=== PATIENT | female | born 1995 | race Caucasian/White ===

== ENCOUNTER 2016-10-19 01:38 | Inpatient (IN) | payer OTHER ==
[2016-10-19] MEDS ORDERED: ONDANSETRON HCL/PF 2 MG/ML VIAL IV PRN ×2 (03:18→05:40)
[2016-10-19] MEDS ORDERED: NALOXONE HCL 1 MG/1 ML SYRG IV PRN ×2 (03:18→05:40)
[2016-10-19 03:39] LABS: Hematocrit 38.2 % (37.0-47.0); Hemoglobin 12.8 gm/dL (12.5-16.0); Mean Cell Volume 90.7 fl (78-100); Mean Corpuscular Hemoglobin 30.4 pg (27-31); Mean Corpuscular Hgb Conc 33.5 g/dl (32-36); Mean Platelet Volume 9.2 fl (6.0-9.5); Neutrophil # 10.8 K/mm3 (1.3-6.0); Neutrophil % 74.2 % (42-75.0); Platelet Count 261 K/mm3 (150-450); Red Blood Count 4.21 M/mm3 (4.2-5.4); Red Cell Distribution Width 13.6 % (11.5-14.0); White Blood Count 14.5 K/mm3 (4.0-10.5)
[2016-10-19] MEDS ORDERED: LIDOCAINE HCL 50 ML VIAL PERI PRN (04:02)
[2016-10-19] MEDS: RINGER'S SOLUTION,LACTATED 1,000 ML IV PRN ×2 (04:40→05:30)
[2016-10-19] MEDS ORDERED: fentaNYL CITRATE/PF 50 MCG/ML AMPUL IT ONE (04:47)
[2016-10-19] MEDS ORDERED: fentaNYL CITRATE/PF 50 MCG/ML AMPUL IT SCH (05:00)
--- NOTE | 2016-10-19 05:14 | OR ---
Anesthesia Pre Procedure Eval Date of Service: 10/19/16 Pre Procedure Evaluation: Anesthesia Pre Procedure Evaluation Heart Rate: 98 Blood Pressure: 131/82 Temperature: 36.6 Respiratory Rate: 18 SaO2: 98 DATE: 10/19/2016 TIME: 5:10 AM INDICATIONS: Active labor, and pain PAST MEDICAL HISTORY: Patient in active labor requesting labor analgesia EXAM: Heart regular; lungs clear ASSESSMENT OF MEDICAL STATUS: Appropriate candidate for labor analgesia PLANNED PROCEDURE: Combination spinal epidural for labor analgesia Home Medications: HOME MEDICATIONS Vit#96/Ferrous Fum/FA [ S] 1 tab PO DAILY 10/18/16 [Last Taken 10/18/16]
--- NOTE | 2016-10-19 05:36 | OR ---
Anesthesia Procedure Note - Anesthesia Procedure Note Date of Service: 10/19/16 Narrative: 10/19/16 05:33 ANESTHESIA PROCEDURE NOTE Date of Procedure: 10/19/2016 Time of procedure: 5:10 AM. Performed by: SUSANA Norman CRNA, MSN Camper Assembler: Master Vasquez RN. Preprocedure diagnosis: Active labor, labor pain. Post procedure diagnosis: Same. Procedure:Epidural for labor analgesia L3 4. Indications: Labor pain. Findings: See below. Details of the procedure: The patient was placed on the side of the bed in sitting positionand prepped with DuraPrep then draped in a sterile fashion. Lidocaine 1% was infiltrated to the skin and subcutaneous tissues at the level of the L3 4 interspace. An 18-gauge Touhy needle was used to approach the epidural space with loss of resistance technique. Once loss of resistance was achieved a 24-gauge Pencan needle was passed through the epidural needle and CSF was contacted. After CSF returned fentanyl 20 mcg of fentanyl was injected in the spinal needle was removed the epidural catheter was then threaded approximately 4 cm in the epidural needle was removed. The catheter was taped in place and after careful aspiration 3 mL of 1.5% lidocaine with 1-200,000 epinephrine was injected without change in maternal heart rate or sensorium. . EBL: Minimal. Fluids: N/A. Specimen: N/A. Post procedure condition: The patient tolerated the procedure well with good relief. No complications were noted. Thank you for this consultation. Cecilio Campbell CRNA, ARNP, MSN
[2016-10-19] MEDS ORDERED: BUPIVACAINE HCL/0.9 % NACL/PF 250 ML EP PRN (05:43)
[2016-10-19] MEDS: OXYTOCIN/DEXTROSE 5%-WATER 30 UNITS/500 ML BAG IV ONE ×2 (08:13→08:50)
[2016-10-19] MEDS ORDERED: BENZOCAINE/MENTHOL 81 SPRAY CAN TP PRN (14:54)
[2016-10-19] MEDS ORDERED: HYDROCORTISONE 30 APPL TUBE TP PRN (14:54)
[2016-10-19] MEDS ORDERED: GLYCERIN/WITCH HAZEL LEAF 40 APPL BOX TP PRN (14:54)
[2016-10-19] MEDS ORDERED: BISACODYL 10 MG SUPP.RECT RC PRN (14:54)
[2016-10-19] MEDS ORDERED: OXYTOCIN/DEXTROSE 5%-WATER 30 UNITS/500 ML BAG IV ONE (14:54)
[2016-10-19] MEDS ORDERED: SENNOSIDES 8.6 MG TABLET PO PRN (14:54)
[2016-10-19] MEDS ORDERED: diphenhydrAMINE HCL 25 MG CAPSULE PO PRN (14:54)
--- NOTE | 2016-10-19 15:10 | OR ---
Operative Report - Dictated Report Narrative: Spontaneous Vaginal Delivery Note: 21 yo, CF, G1 at 40 3/7 weeks, admitted in labor, dilated to 4-5 cm with a bulging bag. GBS was negative. Received epidural 6:00 am. SROM at 8:30 am with meconium. Progressed to complete without complications. Pushed with contractions for 2 hours. Head delivered in OA over the perineum. No nuchal cord noted. The anterior shoulder delivered, followed by the posterior shoulder and the rest of the baby without difficulty. Thick meconeum noted after delivery. Baby cried at perineum. Delayed cord clamping for one minute. Cord was clamped, and cut by father of baby. Baby placed on maternal abdomen for drying and care by the nursing. Cord blood was obtained. Placenta delivered intact with 3 vessel cord. Pitocin drip started after placenta delivered. Exam of the perineum, vaginal and cervix revealed no perineum laceration. Small right periurethral tear was hemostatic and no repair needed. Fundus was massaged and firm. Bleeding was minimal. Mother and baby tolerated the delivery well. EBL 250 ml. Infant: female, 3576 grams, 7 lbs and 14.1 oz. 9/9. Time of delivery: 14: 19. Kemal Tuttle MD History for Definition: * The number of deliveries resulting in a live the patient experienced prior to current hospitalization * The previous delivery of live twins or any live multiple gestation is considered one live event. *If primagravida or nulliparous is documented select zero for the number of previous live births. Live Events: 0
[2016-10-19] MEDS: IBUPROFEN 800 MG TABLET PO PRN (15:14)
[2016-10-19] MEDS: HYDROcodone/ACETAMINOPHEN 1 EACH TABLET PO PRN (15:14)
[2016-10-20] MEDS: DOCUSATE SODIUM 100 MG CAPSULE PO SCH ×3 (04:53→21:31)
[2016-10-20] MEDS: HYDROcodone/ACETAMINOPHEN 1 EACH TABLET PO PRN (08:04)
[2016-10-20] MEDS: IBUPROFEN 800 MG TABLET PO PRN ×2 (08:05→17:06)
--- NOTE | 2016-10-20 17:41 | PN ---
Subjective - Date and Time Seen Date: 10/20/16 Subjective Narrative: day 1, s/p doing well. . normal lochia. ambulating, voiding and tolerating diet well. Objective - Vitals Vitals: Last Vital Signs Temp 36.6 C 10/20/16 12:15 Pulse 86 10/20/16 12:15 Resp 18 10/20/16 12:15 BP 112/72 10/20/16 12:15 Pulse Ox 95 10/20/16 12:15 - Exam Constitutional: Present: Alert, Oriented x3, Cooperative Respiratory: Present: no respiratory distress Cardiovascular/Chest: Present: normal peripheral pulses Abdomen: Present: soft, nontender, nondistended, other - fundus firm and below umbilicus Extremity: Present: normal range of motion, no pedal edema, no calf tenderness Skin Exam: Present: normal color, warm/dry, no cyanosis Eye contact: Present: cooperative, good eye contact, normal speech Cauti Physician Documentation - Urinary Catheter Management Urethral (Rubio) Date of Insertion: 10/19/16 Time of Insertion: 05:58 Date of Removal: 10/19/16 Time of Removal: 12:50 Assessment/Plan Plan Narrative: A: day 1, s/p , stable and well. Plan: routine care. ambulation encouraged. Kemal Tuttle MD
[2016-10-21] MEDS: DOCUSATE SODIUM 100 MG CAPSULE PO SCH ×2 (12:21→20:18)
--- NOTE | 2016-10-21 12:41 | PN ---
Subjective - Date and Time Seen Date: 10/21/16 Subjective Narrative: day 2, s/p No complaints. . normal lochia. Objective - Vitals Vitals: Last Vital Signs Temp 36.7 C 10/21/16 07:47 Pulse 87 10/21/16 07:47 Resp 18 10/21/16 07:47 BP 109/75 10/21/16 07:47 Pulse Ox 98 10/21/16 07:47 - Exam Constitutional: Present: Alert, Oriented x3, Cooperative Respiratory: Present: no respiratory distress Cardiovascular/Chest: Present: normal peripheral pulses Abdomen: Present: soft, nontender, nondistended, other - fundus firm Extremity: Present: normal range of motion, no pedal edema, no calf tenderness Skin Exam: Present: normal color, warm/dry, no cyanosis Eye contact: Present: cooperative, good eye contact, normal speech Cauti Physician Documentation - Urinary Catheter Management Urethral (Rubio) Date of Insertion: 10/19/16 Time of Insertion: 05:58 Date of Removal: 10/19/16 Time of Removal: 12:50 Assessment/Plan Plan Narrative: A: day 2, s/p , stable and well. Plan: will discharge the patient today. Kemal Tuttle MD
[2016-10-21] MEDS: IBUPROFEN 800 MG TABLET PO PRN (12:53)
[2016-10-21 20:33] VITALS: BP 122/78
== END 2016-10-21 22:58 | disposition home or self-care (01) | DRG 775 ==
LOC: OBCLINIC 01:38 → OB 03:07
PROVIDERS: ADMIT Obstetrics & Gynecology; ATTEND Obstetrics & Gynecology
PROC: 10E0XZZ Delivery of Products of Conception, External Approach (ICD-10-PCS; principal; 2016-10-19)
PROC: 4A1HXCZ Monitoring of Products of Conception, Cardiac Rate, External Approach (ICD-10-PCS; 2016-10-19)
PROC: 00HU33Z Insertion of Infusion Device into Spinal Canal, Percutaneous Approach (ICD-10-PCS; 2016-10-19)
DX: O80 Encounter for full-term uncomplicated delivery (principal); Z3A.40 40 weeks gestation of pregnancy; Z37.0 Single live birth

== ENCOUNTER 2020-06-27 | Inpatient (IN) ==
[2020-06-27] MEDS ORDERED: ONDANSETRON 4 MG TAB.RAPDIS PO PRN (00:08)
[2020-06-27] MEDS ORDERED: OXYTOCIN/0.9 % SODIUM CHLORIDE 30 UNITS/500 ML BAG IV ONE ×2 (00:08→17:45)
--- NOTE | 2020-06-27 10:55 | HP ---
Chief Complaint - Chief Complaint Date of Service: 06/27/20 Time of Service: 07:35 Chief Complaint: induction of labor History of Present Illness: 25-year-old 2 para 1 at 39 weeks admitted for elective induction of labor. This complicated by anemia, B.V., chlamydia in 1st trimester, Varicella non-immune, and h/o migraines. Rh positive Rubella immune GBS negative Medical History (Last Reviewed 06/27/20 @ 12:59 by Dav Rubin DO) Migraine with aura Urinary tract infection Onset Date: Unknown Yeast infection Onset Date: ~2018 Surgical History: Surgical History (Last Reviewed 06/27/20 @ 12:59 by Dav Rubin DO) No significant past surgical history Family History: Family History (Last Reviewed 06/27/20 @ 12:59 by Dav Rubin DO) Father Hypertension Mother Alive and well Grandmother Cancer maternal grandma-breast CA Social History: (Last Reviewed 06/27/20 @ 12:59 by Dav Rubin DO) Social History: Marital status: Single household members: family current occupational status: unemployed Highest level of school completed/degree received: high school graduate Service: No Tobacco: Smoking Status: Never smoker Alcohol: alcohol intake: current details: 2 beers since LMP Substance Use: substance use type: does not use Dietary Habits: caffeine: Yes caffeine comment: 1 every other day Type: carbonated beverages Review Of Systems (GEN) - Review of Systems Generalized/Overall Review: Present: No Symptoms Reported EENTM: Present: No Symptoms Reported Respiratory: Present: No Symptoms Reported Cardiac: Present: No Symptoms Reported Abdominal: Present: No Symptoms Reported Genitourinary: Present: No Symptoms Reported Musculoskeletal: Present: No Symptoms Reported Neurological: Present: No Symptoms Reported Skin: Present: No Symptoms Reported Endocrine: Present: No Symptoms Reported Allergies/Adverse Reactions: Allergies Allergy/AdvReac Type Severity Reaction Status Date / Time No Known Allergies Allergy Verified 06/25/20 13:43 Home Medications: HOME MEDICATIONS prenat.vits,mey,ker-[id number] 1 tab PO DAILY 12/15/19 [Last Taken 06/26/20 07:00] Exam - Exam Vital Signs: Vital Signs - Last Taken Temp 36.5 C 06/27/20 02:07 Pulse 96 06/27/20 02:07 Resp 18 06/27/20 02:07 BP 117/76 06/27/20 02:07 Pulse Ox 96 06/27/20 02:07 Constitutional: Present: Alert, Oriented x3, Cooperative ENT Exam: Present: hearing grossly normal Neck: Present: non-tender, trachea midline. Absent: thyromegaly Breasts: Present: Exam deferred Respiratory: Present: lungs clear, no respiratory distress Cardiovascular/Chest: Present: normal peripheral pulses, regular rate, rhythm, no edema Abdomen: Present: soft, nontender, no rebound tenderness, other - gravid /Rectal: Present: Other - Cervix 2/50/-3 Extremity: Present: no pedal edema, no calf tenderness Skin Exam: Present: normal color, warm/dry, no cyanosis Neurologic: Present: boner meat II-XII nml as tested Appearance: Present: appropriate appearance, appropriate insight Eye contact: Present: cooperative Thoughts: Present: normal thought pattern Assessment/Plan - Assessment/Plan (1) Elective induction of labor planned Assessment: Admit for pitocin induction of labor. Epidural PRN. Problem: Acute (2) Maternal varicella, non-immune Problem: Chronic (3) Anemia Problem: Chronic Qualifiers: Anemia type: iron deficiency Iron deficiency anemia type: inadequate dietary iron intake Qualified Code(s): D50.8 - Other iron deficiency anemias (4) History of migraine Problem: Chronic
--- NOTE | 2020-06-27 10:56 | PN ---
Progess Note - Interim Date: 06/27/20 Time: 10:55 Narrative: 06/27/20 10:55 Patient rating contractions are 3-4 out of 10 Vital signs stable. Pitocin at 12 mu/min. FHT: 135 baseline, reassuring contractions q 2 min Cervix: 3-4/60/-2, AROM-clear at 1045 Impression: Intrauterine at 39 weeks induction of labor. Plan: Continue present plan. Will back Pitocin down as needed to keep contractions in the 2 to 3-minute range.
[2020-06-27] MEDS: RINGER'S SOLUTION,LACTATED 1,000 ML IV ONE ×2 (11:12→15:07)
[2020-06-27] MEDS ORDERED: NALOXONE HCL 1 MG/1 ML SYRG IV PRN (11:20)
[2020-06-27] MEDS ORDERED: BUPIVACAINE HCL/0.9 % NACL/PF 250 ML EP PRN (11:20)
[2020-06-27] MEDS ORDERED: ONDANSETRON HCL/PF 2 MG/ML VIAL IV PRN (11:20)
[2020-06-27] MEDS ORDERED: fentaNYL CITRATE/PF 50 MCG/ML AMPUL IT SCH (11:30)
--- NOTE | 2020-06-27 11:46 | ANES ---
Anesthesia Pre Procedure Eval Vitals/Labs: Last Vital Signs Temp 36.5 C 06/27/20 02:07 Pulse 96 06/27/20 02:07 Resp 18 06/27/20 02:07 BP 117/76 06/27/20 02:07 Pulse Ox 96 06/27/20 02:07 HOME MEDICATIONS prenat.vits,mey,cce-jglg-mlatc 1 tab PO DAILY 12/15/19 [Last Taken 06/26/20 07:00] Allergies/Adverse Reactions: Allergies Allergy/AdvReac Type Severity Reaction Status Date / Time No Known Allergies Allergy Verified 06/25/20 13:43 - Planned Procedure Planned Procedure: CSE for labor analgesia Medication List Reviewed:: Yes Allergies Verified: Yes Medical History (Last Reviewed 06/27/20 @ 11:44 by Cecilio Campbell CRNA) Migraine with aura Urinary tract infection Onset Date: Unknown Yeast infection Onset Date: ~2018 Surgical History (Last Reviewed 06/27/20 @ 11:44 by Cecilio Campbell CRNA) No significant past surgical history Family History (Last Reviewed 06/27/20 @ 11:44 by Cecilio Campbell CRNA) Father Hypertension Mother Alive and well Grandmother Cancer maternal grandma-breast CA - Family Anesthesia History Family History:: no untoward family reactions to anesthesia, no familial bleeding tendencies, no family history of clotting disorders, no family history of premature - Airway/Neck/Teeth Within Normal Limits:: Yes Teeth Condition: intact Mallampatti Score: 2 Thyromental (T-M) distance: > 6 cm Mandibulo Hyoid distance: > 3 cm - Respiratory Smoking Status: Never smoker Sleep Apnea currently treated: No Sleep Apnea by current assessment: No - Cardiovascular Tolerate Activity: Fair Heart Sounds: S1 & S2, Regular - Anesthesia Assessment and Plan ASA Class: PS, II, E Anesthesia Type Plan: Epidural - CSE for labor analgesia
--- NOTE | 2020-06-27 12:14 | ANES ---
Post Anesthesia Discharge - Transfer of Care Transfer of Care handoff given to nurse: Yes - Discharge from PACU Discharge from PACU when meets criteria: Yes - Comfortable post CSE
--- NOTE | 2020-06-27 12:17 | ANES ---
Anesthesia Procedure Note Procedure Note: ANESTHESIA PROCEDURE NOTE Date of Procedure: 06/27/2020 Time of procedure: 11:45 AM. Performed by: SUSANA Norman CRNA, MSN Steel Heater: Vanessa Barbosa RN. Preprocedure diagnosis: Active labor, labor pain. Post procedure diagnosis: Same. Procedure:Epidural for labor analgesia L4-5. Indications: Labor pain. Findings: See below. Details of the procedure: The patient was placed on the side of the bed in sitting positionand prepped with DuraPrep then draped in a sterile fashion. Lidocaine 1% was infiltrated to the skin and subcutaneous tissues at the level of the L4-5 interspace. An 18-gauge Touhy needle was used to approach the epidural space with loss of resistance technique. Once loss of resistance was achieved a 27-gauge spinal needle was passed through the epidural needle and CSF was contacted. After CSF returned, 20 mcg of fentanyl was injected in the spinal needle was removed the epidural catheter was then threaded approximately 4 cm in the epidural needle was removed. The catheter was taped in place and after careful aspiration 3 mL of 1.5% lidocaine with 1-200,000 epinephrine was injected without change in maternal heart rate or sensorium. . EBL: Minimal. Fluids: N/A. Specimen: N/A. Post procedure condition: The patient tolerated the procedure well with good relief. No complications were noted. Thank you for this consultation. Cecilio Campbell CRNA, SUSANA, MSN
--- NOTE | 2020-06-27 12:24 | ANES ---
Post Anesthesia Assessment - Vital Signs Vitals: Last Vital Signs Temp 36.5 C 06/27/20 02:07 Pulse 96 06/27/20 02:07 Resp 18 06/27/20 02:07 BP 117/76 06/27/20 02:07 Pulse Ox 96 06/27/20 02:07 Airway Patency: Normal - Mental Status Level Of Consciousness: Awake, Alert, Appropriate - Pain Level Pain Score: 0 - N/V Assessment Nausea/Vomiting Presence: None Dehydration:: No
[2020-06-27] MEDS ORDERED: RINGER'S SOLUTION,LACTATED 1,000 ML IV ONE (15:25)
[2020-06-27] MEDS ORDERED: BISACODYL 10 MG SUPP.RECT RC PRN (17:45)
[2020-06-27] MEDS ORDERED: oxyCODONE HCL/ACETAMINOPHEN 1 TAB TABLET PO PRN (17:45)
[2020-06-27] MEDS ORDERED: GLYCERIN/WITCH HAZEL LEAF 40 APPL BOX TP PRN (17:45)
[2020-06-27] MEDS ORDERED: HYDROCORTISONE 30 APPL TUBE TP PRN (17:45)
[2020-06-27] MEDS ORDERED: SENNOSIDES 8.6 MG TABLET PO PRN (17:45)
[2020-06-27] MEDS ORDERED: BENZOCAINE/MENTHOL 81 SPRAY CAN TP PRN (17:45)
[2020-06-27] MEDS ORDERED: IBUPROFEN 800 MG TABLET PO PRN (17:45)
--- NOTE | 2020-06-27 17:47 | OR ---
Operative Report - Dictated Report Narrative: Spontaneous vaginal delivery of vigorously crying viable female at 1729 on 06/27/2020 with Apgars 9 and 9, weighing 3899 g in KEANU position. Cord clamping delayed approximately 1 minute Placenta delivered complete, intact, with three vessel cord Estimated blood loss: Less than 50 ml Anesthesia: Epidural Lacerations: None History for MU History for MU Definition: * The number of deliveries resulting in a live the patient experienced prior to current hospitalization * The previous delivery of live twins or any live multiple gestation is considered one live event. *If primagravida or nulliparous is documented select zero for the number of previous live births. Live Events: Live Events: 1
[2020-06-27] MEDS: IBUPROFEN 800 MG TABLET PO PRN (18:30)
[2020-06-27] MEDS: DOCUSATE SODIUM 100 MG CAPSULE PO SCH (20:06)
[2020-06-28] MEDS: IBUPROFEN 800 MG TABLET PO PRN ×2 (04:37→18:58)
--- NOTE | 2020-06-28 09:15 | PN ---
Subjective - Date and Time Seen Date: 06/28/20 Time: 09:15 Objective - Vitals Vitals: Last Vital Signs Temp 36.3 C 06/28/20 01:54 Pulse 84 06/28/20 01:54 Resp 16 06/28/20 01:54 BP 111/67 06/28/20 01:54 Pulse Ox 96 06/28/20 01:54 Patient denies complaints. Breast-feeding. Lochia wnl abdomen - soft, nontender Uterus -firm, at umbilicus - 1 No calf tenderness Impression: day #1 - s/p spontaneous vaginal delivery. Plan: Continue routine care Cauti Physician Documentation - Urinary Catheter Management Urethral (Rubio) Date of Insertion: 06/27/20 Time of Insertion: 13:20 Assessment/Plan - Problems/Diagnosis (1) Elective induction of labor planned Problem: Acute (2) Maternal varicella, non-immune Problem: Chronic (3) Anemia Problem: Chronic Qualifiers: Anemia type: iron deficiency Iron deficiency anemia type: inadequate dietary iron intake Qualified Code(s): D50.8 - Other iron deficiency anemias (4) History of migraine Problem: Chronic
[2020-06-28] MEDS: PRENATAL VITS96/IRON FUM/FOLIC 1 TAB TABLET PO SCH (11:37)
[2020-06-28] MEDS: DOCUSATE SODIUM 100 MG CAPSULE PO SCH ×2 (11:37→20:35)
[2020-06-29 06:59] VITALS: BP 112/78
--- NOTE | 2020-06-29 08:18 | PN ---
Subjective - Date and Time Seen Date: 06/29/20 Time: 08:16 Objective - Vitals Vitals: Last Vital Signs Temp 36.4 C 06/29/20 06:55 Pulse 80 06/29/20 06:55 Resp 20 06/29/20 06:55 BP 112/78 06/29/20 06:55 Pulse Ox 97 06/29/20 06:55 Patient denies complaints. Breast-feeding well. Lochia wnl abdomen - soft, nontender Uterus -firm, at umbilicus - 2 No calf tenderness Impression: day #2 - s/p spontaneous vaginal delivery. Plan: Routine discharge instructions Cauti Physician Documentation - Urinary Catheter Management Urethral (Rubio) Date of Insertion: 06/27/20 Time of Insertion: 13:20 Assessment/Plan - Problems/Diagnosis (1) Vaginal delivery Problem: Resolved (2) Elective induction of labor planned Problem: Resolved (3) Maternal varicella, non-immune Problem: Chronic (4) Anemia Problem: Chronic Qualifiers: Anemia type: iron deficiency Iron deficiency anemia type: inadequate dietary iron intake Qualified Code(s): D50.8 - Other iron deficiency anemias (5) History of migraine Problem: Chronic
--- NOTE | 2020-06-29 08:21 | DS ---
OB Discharge Summary (1) Vaginal delivery Status: Resolved (2) Elective induction of labor planned Status: Resolved (3) Maternal varicella, non-immune Status: Chronic (4) Anemia Status: Chronic Qualifiers: Anemia type: iron deficiency Iron deficiency anemia type: inadequate dietary iron intake Qualified Code(s): D50.8 - Other iron deficiency anemias (5) History of migraine Status: Chronic Delivery Date: 06/27/20 Delivery Time: 17:29 :: 2 Para:: 2 Gestational weeks:: 39 Intrapartum Procedures: Spontaneous Vaginal Delivery, Delivered, Anesthesia - Epidural /OP Complications: No Complications Discharge Diagnosis: Term -Delivered - Discharge Information Date of Discharge: 06/29/20 Hospital Course: 25-year-old 2 now para 2 admitted at 39 weeks for elective induction of labor which went uneventfully. Her course was also uneventful. Discharged to home with routine instructions. Will get varicella vaccine at visit. Discharge Location: Home Disposition: Home self-care Condition: Good Activity on Discharge:: Activity as tolerated, Pelvic Rest Discharge Diet: General/regular food Additional Patient Instructions (free text): Blanca will follow up with Dr. Rubin on Continue to take your vitamins one daily. Rest when your baby rests. Kathy will follow up with Dr. Salinas on Nurse your baby every 2-3 hours and when showing feeding cues. Burping after each breast. Always use safe sleeping practices, always place your baby on her back to sleep in her own bed, no co-sleeping, bumper pad, heavy blankets or stuffed animals in sleeping area. Kathy weight was 8# 9.1 oz. her weight today is 8# 0.1oz. Her blood type is O positive, she has passed her CHD, her hearing screen in both ears, and her Metabolic Screen has been drawn. Her TCB was 9.3 at 35 hours. Thank you for choosing [facility] place for your special event. If you have any concerns, or questions please call the [facility] [phone], [facility] [phone] or [facility] [phone]. Prescriptions (Any new or edited meds): Ibuprofen [Motrin] 200 - 800 mg PO Q6H PRN #100 tab PRN Reason: Pain Complete Home Medications List: Complete Home Medication List: prenat.vits,mey,qpk-wlob-wyttm 1 tab PO DAILY 12/15/19 Ibuprofen [Motrin] 200 - 800 mg PO Q6H PRN #100 tab 06/28/20 - Plan Discharge to:: Home Follow up in office in:: 3-4 weeks - Information Weight (Grams): 3,889 Sex: Female Score 1 min: 9 Score 5 min: 9 Complications: Decreased Variability, Multiple Late Decels
[2020-06-29] MEDS: DOCUSATE SODIUM 100 MG CAPSULE PO SCH (08:34)
[2020-06-29] MEDS: PRENATAL VITS96/IRON FUM/FOLIC 1 TAB TABLET PO SCH (08:34)
== END 2020-06-29 12:15 | disposition home or self-care (01) | DRG 807 ==
LOC: OB
PROVIDERS: ADMIT Obstetrics & Gynecology; ATTEND Obstetrics & Gynecology